=== PATIENT | female | born 1965 | race Two or more races ===

== ENCOUNTER 2025-02-02 10:19 | Emergency (ER) | payer OTHER ==
[~2025-02-02] VITALS: Ht 154.9 cm; Wt 72.0 kg
--- NOTE | 2025-02-02 10:53 | ED.PDOC ---
Honey. trauma (HPI) HPI Comments 59y F who presents to the ED for chief complaint of upper extremity. Pt states she was with friend hiking earlier this AM and states pt had slip and fall on a rock. Pt fell on L knee and L hand to help break her fall. Pt states she suffered a cut and deformity to the L hand 4th finger. Pt did not hit head and otherwise had no noted loss of consciousness. Pt otherwise had bleeding controlled and came to the ED for evaluation. Pt upon arrival to the ED, had deformity and laceration to the L hand 4th finger and noted some bleeding started and ED staff applied lázaro bandage. Pt in the ED, rates her pain 10/10.Pt in the ED, otherwise notes she is up to date on tetanus. Pt denies any other symptoms at this time. Chief Complaint: Upper Extremity Time Seen by MD: 10:50 Reviewed notes: Nurses Notes, Medications, Allergies Allergies: Coded Allergies: NO KNOWN ALLERGIES (Unverified , 02/02/25) Information Source: Patient, Friend Mode of Arrival: Ambulatory Brought in by: friend Severity: Moderate Timing: Hours Duration: Since onset Prehospital treatment: None Location: (L) Hand, (L) Knee Location of laceration: None (L hand) Mechanism: Fall Associated signs and symtoms: None Past Medical History PAST MEDICAL HISTORY: DM Surgical History (Other): L ovarian surgery ETHICS OFFICER History: Denies all ETHICS OFFICER Hx Family History Family History: Reviewed,noncontributory to illness Social History Smoker: Non-Smoker Alcohol: Denies ETOH Use Drugs: Denies Drug Use Lives In: Home Constitutional: denies: chills, diaphoresis, fatigue, fever, malaise, sweats, weakness, others EENTM: denies: blurred vision, double vision, ear bleeding, ear discharge, ear drainage, ear pain, ear ringing, eye pain, eye redness, hearing loss, mouth pain, mouth swelling, nasal discharge, nose bleeding, nose congestion, nose pain, photophobia, tearing, throat pain, throat swelling, voice changes, others Respiratory: denies: cough, hemoptysis, orthopnea, SOB at rest, shortness of breath, SOB with excertion, stridor, wheezing, others Cardiovascular: denies: chest pain, dizzy spells, diaphoresis, Dyspnea on exertion, edema, irregular heart beat, left arm pain, lightheadedness, palpitations, PND, syncope, others Gastrointestinal: denies: abdomen distended, abdominal pain, blood streaked bowels, constipated, diarrhea, dysphagia, difficulty swallowing, hematemesis, melena, nausea, poor appetite, poor fluid intake, rectal bleeding, rectal pain, vomiting, others Genitourinary: denies: abnormal vagina bleeding, burning, dyspareunia, dysuria, flank pain, frequency, hematuria, incontinence, pain, , vagina discharge, urgency, others Neurological: denies: dizziness, fainting, headache, left sided numbness, left sided weakness, numbness, paresthesia, pre-existing deficit, right sided numbness, right sided weakness, seizure, speech problems, tingling, tremors, weakness, others Musculoskeletal: reports: joint pain; denies: back pain, gout, joint swelling, muscle pain, muscle stiffness, neck pain, others Integumetry: reports: laceration (L hand 4th finger); denies: bruises, change in color, change in hair/nails, dryness, lesions, lumps, rash, wounds, others Allergic/Immunocompromised: denies: Difficulty Healing, Frequent Infections, Hives, Itching, others Hematologic/Lymphatic: denies: anemia, blood clots, easy bleeding, easy bruis ing, swollen glands, others Endocrine: denies: excessive hunger, excessive sweating, excessive thirst, exc essive urination, flushing, intolerance to cold, intolerance to heat, unexplained weight gain, unexplained weight loss, others Psychiatric: denies: anxiety, bipolar disorder, depression, hopeless, panic disorder, schizophrenia, sleepless, suicidal, others All Other Systems: Reviewed and Negative Physical Exam General Appearance: Moderate Distress HEENT: Normal ENT Inspection, Pharynx Normal, TMs Normal Neck: Full Range of Motion, Non-Tender, Normal, Normal Inspection Respiratory: Chest Non-Tender, Lungs Clear, No Accessory Muscle Use, No Respiratory Distress, Normal Breath Sounds Cardiovascular: No Edema, No JVD, No Murmur, No Gallop, Normal Peripheral Pulses, Regular Rate/Rhythm Breast Exam: Deferred Gastrointestinal: No Organomegaly, Non Tender, No Pulsatile Mass, Normal Bowel Sounds, Soft Genitalia: Deferred Pelvic: Deferred Rectal: Deferred Extremities: No calf tenderness, Normal capillary refill, Normal inspection, Normal range of motion, Non-tender, No pedal edema Musculoskeletal : Apperance: Normal Neurologic: Alert, educational assistant II-XII nml as Tested, No Motor Deficits, Normal Affect, Normal Mood, No Sensory Deficits Cerebellar Function: Normal Reflexes: Normal Skin: Dry, Lacerations (Left hand 4th digit on the palmar aspect shows a 4 cm laceration with exposed bone), Normal Color, Warm Lymphatic: No Adenopathy Was a procedure done? Was a procedure done?: Yes Sedation Sedation?: No Laceration Repair : Location Left hand palmar aspect 4th digit Length 4 cm with exposed bone Anesthetic: Lidocaine, Without epi, Other (We also reduced the bone prior to suturing) Laceration Repair Prep: Saline Laceration Repair Wound Comple: epidermis/dermis repair Laceration Repair: Number of sutures (Six sutures), Layers Closed (One layer closure), Size (4-0 Ethilon), Nylon, Simple Differential Diagnosis Multiple Trauma: Fractures, Contusion, Hematoma, Laceration X-Ray, Labs, Meds, VS Vital Signs Date Time Temp Pulse Resp B/P (MAP) Pulse Ox O2 Delivery O2 Flow Rate FiO2 02/02/25 10:22 97.9 68 18 161/78 97 97.9 Lab Test 02/02/25 11:06 Range/Units White Blood Count 6.1 4.4-10.8 10^3/uL Red Blood Count 4.91 4.0-5.20 10^6/uL Hemoglobin 15.0 12.2-16.2 g/dL Hematocrit 43.8 36.0-46.0 % Mean Corpuscular Volume 89.2 80.0-100.0 fL Mean Corpuscular Hemoglobin 30.5 28.0-32.0 pg Mean Corpuscular Hemoglobin Concent 34.2 32.0-36.0 g/dL Red Cell Distribution Width 13.1 11.8-14.3 % Platelet Count 181 140-450 10^3/uL Mean Platelet Volume 9.5 6.9-10.8 fL Neutrophils (%) (Auto) 69.3 37.0-80.0 % Lymphocytes (%) (Auto) 25.9 10.0-50.0 % Monocytes (%) (Auto) 4.1 0.0-12.0 % Eosinophils (%) (Auto) 0.2 0.0-7.0 % Basophils (%) (Auto) 0.5 0.0-2.0 % Neutrophils # (Auto) 4.2 1.6-8.6 10 ^3/uL Lymphocytes # (Auto) 1.6 0.4-5.4 10 ^3/uL Monocytes # (Auto) 0.3 0-1.3 10 ^3/uL Eosinophils # (Auto) 0 0-0.8 10 ^3/uL Basophils # (Auto) 0 0-0.2 10 ^3/uL Nucleated Red Blood Cells 0.1 % Sodium Level 142 136-145 mmol/L Potassium Level 4.1 3.5-5.1 mmol/L Chloride Level 105 98-107 mmol/L Carbon Dioxide Level 29 20-31 mmol/L Anion Gap 8 5-15 Blood Urea Nitrogen 8 L 9-23 mg/dL Creatinine 0.70 0.550-1.02 mg/dL Glomerular Filtration Rate Calc 100 >90 mL/min BUN/Creatinine Ratio 11.4 10.0-20.0 Serum Glucose 104 74-106 mg/dL Calcium Level 9.9 8.7-10.4 mg/dL PROCEDURE(s): LHAN - L HAND 3V XRAY FINDINGS/IMPRESSION: : Ulnar and dorsal subluxation of the 4th middle phalanx. IV Hep-Lock is being established The patient was given morphine for the pain and Zofran for the nausea The patient was also given Ancef 1 g IV piggyback The CBC and chemistry panel are within normal limits We did contact the orthopedic surgeon and they are going to see the patient as an outpatient. The patient will be discharged on Keflex We did place the patient in a hand splint The patient will follow up with the primary care doctor and the orthopedic surgeon Images Reviewed?: Images reviewed and evaluated by me Time of 1ST Reevaluation: 11:20 Reevaluation 1ST: Unchanged Time of 2ND Reevaluation: 13:41 Reevaluation 2ND: Improved Patient Education/Counseling: Diagnosis, Treatment, Prognosis, Need For Follow Up Family Education/Counseling: Diagnosis, Treatment, Prognosis, Need For Follow Up Departure 1 Departure Time of Disposition: 13:41 Impression: Primary Impression: Laceration of left hand Qualified Codes: S61.412A - Laceration without foreign body of left hand, initial encounter Additional Impression: Dislocation of finger, left, open Qualified Codes: S63.259A - Unspecified dislocation of unspecified finger, initial encounter; S61.209A - Unspecified open wound of unspecified finger without damage to nail, initial encounter Disposition: HOME / SELF CARE / HOMELESS Condition: Fair Discharged With: Self, Friend Critical Care Note Critical Care Time?: No Stability Stability form required: No Heart Score Heart Score: Heart Score Response (Comments) Value History N/A 0 EKG N/A 0 Age N/A 0 Risk Factors N/A 0 Troponin N/A 0 Total 0 I personally scribed for EDMUND DUENAS MD ([email or web address]) on 02/02/25 at 10:53. Electronically submitted by Charlene Cardenas ([email or web address]). I personally scribed for EDMUND DUENAS MD ([email or web address]) on 02/02/25 at 11:52. Electronically submitted by Charlene Cardenas ([email or web address]). EDMUND DUENAS MD Feb 02, 2025 10:53
[2025-02-02 11:24] LABS: Hematocrit 43.8 % (36.0-46.0); Hemoglobin 15.0 g/dL (12.2-16.2); Mean Corpuscular Hemoglobin 30.5 pg (28.0-32.0); Mean Corpuscular Volume 89.2 fL (80.0-100.0); Nucleated Red Blood Cells % 0.1 %
[2025-02-02 11:38] LABS: Chloride 105 mmol/L (98-107); Potassium 4.1 mmol/L (3.5-5.1); Sodium 142 mmol/L (136-145)
[2025-02-02 11:39] LABS: Anion Gap 8 (5-15); Carbon Dioxide 29 mmol/L (20-31)
[2025-02-02 11:40] LABS: Calcium 9.9 mg/dL (8.7-10.4)
--- NOTE | 2025-02-02 11:42 | DVH ---
CLINICAL INDICATION: trauma TECHNIQUE: XY L HAND 3V XRAY COMPARISON: None FINDINGS/IMPRESSION: : Ulnar and dorsal subluxation of the 4th middle phalanx.
[2025-02-02 11:45] LABS: BUN/Creatinine Ratio 11.4 (10.0-20.0); Glucose 104 mg/dL (74-106)
[2025-02-02 11:47] LABS: Blood Urea Nitrogen 8 mg/dL (9-23)
[2025-02-02 13:04] VITALS: RESP 16; O2SAT 95
[2025-02-02] MEDS: ONDANSETRON HCL 4 MG/2 ML VIAL IV ONE (13:41)
[2025-02-02] MEDS: MORPHINE SULFATE 4 MG/ML SYR/VIAL IV ONE (13:41)
[2025-02-02] MEDS: LIDOCAINE 1% HCL (LOCAL ANESTH.) INJ 20ML MDV ONE (13:43)
[2025-02-02] MEDS: ceFAZolin 1GM/50ML 50 ML IV ONE (13:43)
[2025-02-02] MEDS: LIDOCAINE 1% (LOCAL ANESTH.) PF 5ml SDV ID ONE (13:43)
[2025-02-02] MEDS ORDERED: CEPH250C PO (13:43)
[2025-02-02 13:50] VITALS: RESP 17; TEMP 98.3; O2SAT 95
[2025-02-02 15:50] VITALS: BP 112/76; PULSE 89; RESP 17; O2SAT 96
== END 2025-02-02 16:00 | disposition home or self-care (01) ==
LOC: ER 10:19
DX: S63.251A Unspecified dislocation of left index finger, initial encounter (principal); S61.215A Laceration without foreign body of left ring finger without damage to nail, initial encounter; E11.9 Type 2 diabetes mellitus without complications; W01.0XXA Fall on same level from slipping, tripping and stumbling without subsequent striking against object, initial encounter; Y93.01 Activity, walking, marching and hiking; Y92.89 Other specified places as the place of occurrence of the external cause; Y99.8 Other external cause status
CPT/HCPCS: 12002; 36415; 73130; 80048; 82947; 85025; 96365; 96375; 99284; J0690; J2003; J2270; J2405; 82962